=== PATIENT | female | born 1960 | race Caucasian/White ===

== ENCOUNTER 2019-12-20 22:06 | Emergency (ER) | payer OTHER ==
[~2019-12-20] VITALS: Ht 162.6 cm; Wt 81.2 kg
[2019-12-20 22:15] VITALS: Ht 162.6 cm; Wt 81.2 kg
[2019-12-20 23:40] VITALS: BP 118/58
== END 2019-12-20 23:40 | disposition home or self-care (01) ==
LOC: ED 22:06
DX: S52.125A Nondisplaced fracture of head of left radius, initial encounter for closed fracture (principal); S82.145A Nondisplaced bicondylar fracture of left tibia, initial encounter for closed fracture; S82.002A Unspecified fracture of left patella, initial encounter for closed fracture; Z88.8 Allergy status to other drugs, medicaments and biological substances; X58.XXXA Exposure to other specified factors, initial encounter; Y93.01 Activity, walking, marching and hiking; Y92.89 Other specified places as the place of occurrence of the external cause; Y99.8 Other external cause status
CPT/HCPCS: Q0092